=== PATIENT | female | born 1950 | race Caucasian/White ===

== ENCOUNTER 2017-04-18 13:54 | Emergency (ER) | payer OTHER, MEDICARE ==
[2017-04-18 14:14] VITALS: BP 125/78; PULSE 59; TEMP 97.1; BMI 18.7
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
[2017-04-18] MEDS ORDERED: LIDOCAINE HCL 1%, 10 MG/ML (20ML VIAL) ONE (15:43)
[2017-04-18] MEDS ORDERED: LIDOCAINE HCL 1%, 10 MG/ML (50 mL VIAL) SQ ONE (16:08)
== END 2017-04-18 17:42 | disposition home or self-care (01) ==
LOC: JER 13:54
PROC: 0PSJXZZ Reposition Left Radius, External Approach (ICD-10-PCS; principal; 2017-04-18)
DX: S52.532A Colles' fracture of left radius, initial encounter for closed fracture (principal); I10 Essential (primary) hypertension; E78.00 Pure hypercholesterolemia, unspecified; J44.9 Chronic obstructive pulmonary disease, unspecified; W01.0XXA Fall on same level from slipping, tripping and stumbling without subsequent striking against object, initial encounter; Y93.89 Activity, other specified; Y92.414 Local residential or business street as the place of occurrence of the external cause; Y99.8 Other external cause status
CPT/HCPCS: 25605; 73070-TC-LT; 73110-TC-LT; 73130-TC-LT; 99281-25

== ENCOUNTER 2017-04-29 05:14 | Day surgery (SDC) | payer OTHER, MEDICARE ==
[2017-04-28 13:53] VITALS: BMI 18.7
[2017-04-29] MEDS ORDERED: MIDAZOLAM HCL 2 MG/2 ML SINGLE DOSE VIAL ONE (15:25)
[2017-04-29] MEDS ORDERED: PROPOFOL 20 ML ONE (15:25)
[2017-04-29] MEDS ORDERED: ROPIVACAINE HCL 0.5% 30ML VIAL ONE (15:59)
--- NOTE | 2017-04-29 16:10 | HP ---
Satellite [facility] - Chief Complaint Chief Complaint: s/p fall, Left wrist fracture History of Present Illness: left wrist fracture History Source: Patient Limitations to Obtaining History: No Limitations - Past Medical History Allergies/Adverse Reactions: Allergies Allergy/AdvReac Type Severity Reaction Status Date / Time No Known Drug Allergies Allergy Verified 04/29/17 14:13 - Current Medications Current Medications: Home Medications Medication Instructions Recorded Aspirin Coated [Ecotrin -] 81 mg PO DAILY 12/10/13 Albuterol Sulfate Inhaler - 1 - 2 inh PO QID PRN 04/18/17 [Ventolin Hfa Inhaler -] Budesonide/Formeterol Fumarate 1 inh PO DAILY 04/18/17 [SYMBICORT 160/4.5mcg -] Naproxen Sodium [Aleve] 660 mg PO DAILY PRN 04/29/17 Satellite Physical Exam - Physical Examination Vital Signs: Vital Signs Period Temp Pulse Resp BP Sys/West Pulse Ox Last 24 Hr 98.0 F 86 16 116/63 99 General Appearance: Well Nourished ENT: Clear Lung: Clear to auscultation Heart: Regular rate & rhythm Breasts: Soft Abdomen: Soft Extremities: No edema Satellite Impression/Plan - Impression/Plan Impression: left wrist fracture Operative Procedure: left distal radius ORIF Date to be Performed: 04/29/17
[2017-04-29] MEDS ORDERED: ceFAZolin SODIUM 1 GM VIAL IVPB ONE (16:27)
[2017-04-29] MEDS ORDERED: ePHEDrine SULFATE 50 MG/1 ML AMPULE ONE (16:35)
[2017-04-29] MEDS ORDERED: oxyCODONE HCL 5 MG TABLET PO PRN (17:45)
[2017-04-29] MEDS ORDERED: ELECTROLYTE-148 SOLN 1,000 ML IV SCH (17:45)
[2017-04-29] MEDS ORDERED: ONDANSETRON 4 MG/2 ML VIAL IVPUSH PRN (17:45)
--- NOTE | 2017-04-29 17:54 | OP ---
Operative Note - Note: Operative Date: 04/29/17 Pre-Operative Diagnosis: left distal radius fracture: comminuted, displaced, angulated, shortened Operation: left distal radius ORIF Implants: [employer] [place] DVR low profile titanium plate, screws Post-Operative Diagnosis: Same as Pre-op Surgeon: Hudson De La Rosa Anesthesiologist/CLEANING VALIDATION CONSULTANT: Shu Mayers Anesthesia: General, Local Estimated Blood Loss (mls): 0 Blood Volume Replaced (mls): 0 Fluid Volume Replaced (mls): 500 Operative Report Dictated: Yes
--- NOTE | 2017-04-29 19:00 | SPEC ---
DATE OF OPERATION: 04/29/2017 PREOPERATIVE DIAGNOSIS: Left distal radius fracture, comminuted, displaced, angulated, shortened. POSTOPERATIVE DIAGNOSIS: Left distal radius fracture, comminuted, displaced, angulated, shortened. PROCEDURE: Left distal radius open reduction internal fixation. SURGEON: Hudson De La Rosa M.D. CHAIN TESTING MACHINE OPERATOR: None. ANESTHESIOLOGIST: Shu Mayers M.D. DRAINS: None. COMPLICATIONS: None. SPECIMEN: None. BLOOD LOSS: None. BLOOD GIVEN: None. FLUID REPLACEMENT: 1000 mL Plasmalyte. IMPLANTS: charity: water Hand [employer] titanium low profile DVR plate and screws. INDICATION: This patient is a 66-year-old female with the preoperative diagnosis of a displaced angulated shortened comminuted distal radius fracture. After understanding the potential risks, complications, alternatives, benefits to surgery versus nonsurgical treatment, the patient elected to pursue this procedure, left interscalene block. The entire case was done under 3.8 loupe magnification. Typical FCR approach was marked out with a marking pen and incision made with No. 15 scalpel blade. Subcutaneous hemostasis was achieved with a bipolar cautery. The radial artery was retracted gently in a radial direction and ulnar to this, using a fresh No. 15 scalpel blade, the muscular fascia was incised. Blunt dissection was done with my index finger down to the volar aspect of the distal radius. Weitlaner retractors were placed deep into the wound for visualization. A periosteal elevator was used to do subperiosteal dissection exposing the fracture site. There was a main transverse component to the distal radius fracture but in addition there were several pieces, some extending towards the radial carpal joint and some towards the distal radial ulnar joint. The fracture site was copiously irrigated and washed out. All debris including hematoma and muscle were removed. A provisional reduction was performed and seemed to come together quite nicely. There was a small metaphyseal defect. X-rays were taken in A-P and lateral planes documenting excellent position of the fracture fragments, restoring radial height inclination and volar tilt. Next a standard hand innovations left volar low profile DVR plate was placed on the volar aspect of the distal radius. Two K-wires were placed and x-rays were taken documenting excellent position, length and subchondral position. Next the central 3.5 mm screw was placed in a standard fashion, this was 14 mm in length, and the second-most ulnar proximal row screw was placed. This was a 24 mm partially threaded locking screw. X-rays again were taken documenting excellent position and support of the subchondral bone. The rest of the screws were then put in, first 2 additional purple proximal screws of 12 and 14 mm in length for 6 cortices proximally and then the silver drill bit was used to put in the remaining 6 screws of both the proximal and distal row from 18 mm to 24 mm of length, all partially threaded locking screws. All of the guides were removed and passed off the field. Final x-rays were taken in A-P and lateral planes. I was quite happy with the fracture reduction position, position of the radial carpal joint, distal radial ulnar joint length, height and tilt. TOTAL TOURNIQUET TIME: 52 minutes. COMPLICATIONS: There were no complications during the case. Diony [id number]
[2017-04-29 19:12] VITALS: TEMP 97.5
[2017-04-29 19:55] VITALS: BP 138/76; PULSE 72
== END 2017-04-29 19:55 | disposition home or self-care (01) ==
LOC: JASU-SURG 05:14
PROVIDERS: ATTEND Orthopaedic Surgery
PROC: 0PSJ04Z Reposition Left Radius with Internal Fixation Device, Open Approach (ICD-10-PCS; principal; 2017-04-29 15:30)
DX: S52.502A Unspecified fracture of the lower end of left radius, initial encounter for closed fracture (principal); X58.XXXA Exposure to other specified factors, initial encounter; Y93.9 Activity, unspecified; Y92.9 Unspecified place or not applicable; Y99.9 Unspecified external cause status
CPT/HCPCS: 76000-TC; 94760

== ENCOUNTER 2023-09-06 16:32 | Emergency (ER) | payer OTHER, MEDICARE ==
[2023-09-06 16:44] VITALS: BP 154/86; PULSE 75; RESP 18; TEMP 98; BMI 18.1
[2023-09-06] MEDS ORDERED: DIPHTH,PERTUSS(ACELL),TET 0.5 ML DISP.SYRIN IM ONE (17:48)
[2023-09-06] MEDS: DIPHTH,PERTUSS(ACELL),TET 0.5 ML DISP.SYRIN IM ONE (17:54)
== END 2023-09-06 18:13 | disposition home or self-care (01) ==
LOC: JERFT 16:32 → JER 16:32 → JERFT 18:13
PROC: 0HQFXZZ Repair Right Hand Skin, External Approach (ICD-10-PCS; principal; 2023-09-06)
PROC: 3E0234Z Introduction of Serum, Toxoid and Vaccine into Muscle, Percutaneous Approach (ICD-10-PCS; 2023-09-06)
DX: S61.411A Laceration without foreign body of right hand, initial encounter (principal); W26.8XXA Contact with other sharp object(s), not elsewhere classified, initial encounter; Z23 Encounter for immunization
CPT/HCPCS: 12001-25; 90471; 90715; 99282-25